=== PATIENT | male | born 1985 | race Two or more races ===

== ENCOUNTER 2018-06-09 12:46 | Emergency (ER) | payer SELFPAY ==
[~2018-06-09] VITALS: Ht 180.3 cm; Wt 94.3 kg
[2018-06-09 12:54] VITALS: BP 119/76
[2018-06-09] MEDS ORDERED: LIDOCAINE-MPF 1%, 5ML ONE (13:08)
[2018-06-09] MEDS ORDERED: OXYMETAZOLINE NASAL SPRAY 0.05%, 15ML ONE (13:08)
[2018-06-09] MEDS ORDERED: SILVER NITRATE STICK TP ONE (13:29)
== END 2018-06-09 14:34 ==
LOC: ED 13:26
DX: R04.0 Epistaxis (principal)
CPT/HCPCS: 30901; 99284

== ENCOUNTER 2018-08-02 21:22 | Emergency (ER) | payer SELFPAY ==
[~2018-08-02] VITALS: Ht 180.3 cm; Wt 92.1 kg
[2018-08-02 21:25] VITALS: BP 114/75
[2018-08-02 23:21] LABS: BASOPHILS % (AUTO) 1 % (0-1); EOSINOPHILS # (AUTO) 0.32 x10^3/uL (0-0.4); EOSINOPHILS % (AUTO) 3 % (1-7); LYMPHOCYTES % (AUTO) 34 % (22-44); MD NO; MEAN CORPUSCULAR HEMOGLOBIN 30.7 pg (27.5-34.5); MEAN CORPUSCULAR HGB CONC 33.9 g/dL (33.2-36.2); MEAN CORPUSCULAR VOLUME 90.3 fL (81-97); MEAN PLATELET VOLUME 9.6 fL (7.4-10.4); MONOCYTES # (AUTO) 0.67 x10^3/uL (0.2-0.8); MONOCYTES % (AUTO) 6 % (2-9); NEUTROPHILS # (AUTO) 6.02 x10^3/uL (1.8-6.8); NEUTROPHILS % (AUTO) 56 % (42-75); PLATELET COUNT 296 x10^3/uL (130-400); RED BLOOD COUNT 5.13 x10^6/uL (4.38-5.82); RED CELL DISTRIBUTION WIDTH 14.6 % (9.4-14.8)
[2018-08-02 23:26] LABS: ANION GAP 10 mmol/L (5-15); CALCIUM 9.3 mg/dL (8.5-10.1); CHLORIDE 108 mmol/L (98-107); CREATININE 1.01 mg/dL (0.7-1.3)
== END 2018-08-02 23:48 | disposition left against medical advice (07) ==
LOC: ED 23:40
DX: R04.0 Epistaxis (principal)
CPT/HCPCS: 36415; 80048; 85025; 93005; 99284